=== PATIENT | female | born 1960 | race Caucasian/White ===

== ENCOUNTER 2019-08-09 11:08 | Emergency (ER) | payer OTHER ==
[~2019-08-09] VITALS: Ht 157.5 cm; Wt 90.3 kg
[2019-08-09 11:34] LABS: BASOPHILS % (AUTO) 1.2 % (0.0-2.0); EOSINOPHILS % (AUTO) 14.2 % (0.0-3.0); HEMATOCRIT 39.3 % (37.0-47.0); HEMOGLOBIN 13.5 G/DL (12.0-16.0); LYMPHOCYTES % (AUTO) 25.1 % (20.0-45.0); MEAN CORPUSCULAR VOLUME 87 FL (80-99); NEUTROPHILS % (AUTO) 52.5 % (45.0-75.0); PLATELET COUNT 200 K/UL (150-450); RED BLOOD COUNT 4.53 M/UL (4.20-5.40); RED CELL DISTRIBUTION WIDTH 11.8 % (11.6-14.8); WHITE BLOOD COUNT 10.2 K/UL (4.8-10.8)
--- NOTE | 2019-08-09 11:35 | NUR ---
ED Nurse Note: PT. BROUGHT IN BY [facility] FROM HOME. PER PT. SHE HAS BEEN HAVING CP SINCE THIS MORNING NON-RADIATING.PT. STATED SHE WAS RECENTLY D/C FROM THE HOSPITAL FOR ASTHMA AND THAT ECHO EXAM WAS NORMAL. PT. ALSO STATED SHE HAS DIZZINESS X 1 HR FROM ER ARRIVBAL. NONMEDS GIVEN BY [employer] INSERTER
--- NOTE | 2019-08-09 11:37 | NUR ---
ED Nurse Note: flu swab obtained and pt to ct scan.
--- NOTE | 2019-08-09 11:41 | Emergency Room Report ---
History of Present Illness General Chief Complaint: General Complaint Source: Patient, EMS Present Illness HPI Patient is a 59-year-old female past medical history of obesity and asthma who presents to the ER complaining of dizziness, generalized weakness, chest pain and shortness of breath. Patient states that this is been an ongoing issue. She states that she was admitted to an outside facility a week ago and was told that this was due to her asthma. She states that she had an echo which was normal. Patient denies any fever or chills. She states that she used her inhaler but still has symptoms. She says that the chest pain is substernal and nonradiating. She states that when she walks into her house she gets exposed to dust and she becomes more short of breath. She denies any lower extremity pain or edema. Allergies: Coded Allergies: No Known Allergies (Unverified , 08/09/19) Patient History Social History: Denies: smoking, alcohol use, drug use Reviewed Nursing Documentation: PMH: Agreed; PSxH: Agreed Nursing Documentation-PMH Past Medical History: No History, Except For Hx Cardiac Problems: Yes - depression Hx Hypertension: Yes Hx Diabetes: Yes Review of Systems All Other Systems: negative except mentioned in HPI Physical Exam Vital Signs Date Time Temp Pulse Resp B/P (MAP) Pulse Ox O2 Delivery O2 Flow Rate FiO2 08/09/19 11:02 98.2 95 24 163/118 (133) 99 Room Air Sp02 EP Interpretation: reviewed, normal General Appearance: no apparent distress, alert, GCS 15, non-toxic Head: normocephalic, atraumatic Eyes: bilateral eye normal inspection, bilateral eye PERRL ENT: hearing grossly normal, normal pharynx, no angioedema, normal voice Neck: full range of motion, supple/symm/no masses Respiratory: chest non-tender, lungs clear, speaking full sentences, wheezing Cardiovascular #1: regular rate, rhythm, no edema Cardiovascular #2: 2+ carotid (R), 2+ carotid (L), 2+ radial (R), 2+ radial (L) , 2+ dorsalis pedis (R), 2+ dorsalis pedis (L) Gastrointestinal: normal bowel sounds, non tender, soft, non-distended, no guarding, no rebound, other - Obese abdomen Rectal: deferred Genitourinary: normal inspection, no CVA tenderness Musculoskeletal: back normal, normal range of motion, calf tenderness, gait/ station normal, non-tender Neurologic: alert, motor strength/tone normal, oriented x3, sensory intact, responsive, speech normal Psychiatric: judgement/insight normal, memory normal, mood/affect normal, no suicidal/homicidal ideation Skin: no rash Lymphatic: no adenopathy Medical Decision Making Diagnostic Impression: Primary Impression: Chest pain Additional Impressions: Cardiomegaly Dyspnea Acute anxiety ER Course Patient given aspirin for her chest pain. Patient CT brain demonstrates no acute intracranial abnormalities. Patient's d-dimer is elevated and she had recent admission with complaints of chest pain and shortness of breath. CTA has been ordered to rule out pulmonary embolism. CTA demonstrates no evidence for PE. Patient has significant cardiomegaly. Patient will be transferred for further treatment and evaluation to [facility] EKG Diagnostic Results EKG Time: 11:19 EP Interpretation: MD Chaya Rate: normal Rhythm: NSR ST Segments: no acute changes ASA given to the pt in ED: Yes Rhythm Strip Diag. Results Rhythm Strip Time: 11:41 EP Interpretation: yes Rate: 76 Rhythm: NSR, no PVC's, no ectopy Last Vital Signs Date Time Temp Pulse Resp B/P (MAP) Pulse Ox O2 Delivery O2 Flow Rate FiO2 08/09/19 11:02 98.2 95 24 163/118 (133) 99 Room Air Disposition: XFER [facility] Physician Consult: Dr. Platt [facility] in guarded improved condition Jessica Larkin M.D. Aug 09, 2019 11:41
[2019-08-09] MEDS ORDERED: Aspirin Baby 81mg ORAL ONE ×2 (11:45→12:15)
[2019-08-09 11:47] LABS: ANION GAP 16 mmol/L (5-15); BLOOD UREA NITROGEN 8 mg/dL (7-18); CALCIUM 8.9 MG/DL (8.5-10.1); CARBON DIOXIDE 23 MMOL/L (21-32); CHLORIDE 105 MMOL/L (98-107); CREATININE 0.6 MG/DL (0.55-1.30); POTASSIUM 3.6 MMOL/L (3.5-5.1); SODIUM 144 MMOL/L (136-145)
[2019-08-09 12:01] LABS: ALANINE AMINOTRANSFERASE 27 U/L (12-78); ALBUMIN 3.3 G/DL (3.4-5.0); ALBUMIN/GLOBULIN RATIO 0.7 (1.0-2.7); ALKALINE PHOSPHATASE 118 U/L (46-116); ASPARTATE AMINO TRANSFERASE 14 U/L (15-37); BILIRUBIN,TOTAL 0.3 MG/DL (0.2-1.0)
[2019-08-09 12:05] LABS: INR 0.9 (0.9-1.1)
--- NOTE | 2019-08-09 12:07 | Diagnostic Imaging Report ---
Indication: Headache Technique: Contiguous 5 mm thick transaxial imaging of the head obtained in a Siemens Sensation [address] scanner. Soft tissue and bone windows generated. Automatic Exposure Control was utilized. Total Dose length Product (DLP): 1072.2mGycm CT Dose Index Volume (CTDIvol): 53.4 mGy Comparison: none Findings: The size and configuration of the cortical sulci, basal cisterns, and ventricles are within normal limits for age. There is no mass effect, midline shift, or edema identified. There is no evidence of acute hemorrhage or abnormal intra-axial or extra-axial fluid collections. The bones and soft tissues are unremarkable. Impression: No mass effect, edema or acute bleed. The CT scanner at [facility] is accredited by the [employer] and the scans are performed using dose optimization techniques as appropriate to a performed exam including Automatic Exposure control.
--- NOTE | 2019-08-09 12:07 | NUR ---
ED Nurse Note: pt voiding on bedpan, urine sent to lab. pt denies new c/o. no increased cp or n/v.
--- NOTE | 2019-08-09 12:29 | NUR ---
ED Nurse Note: resp therapist administering hhn
[2019-08-09 12:30] VITALS: BP_SYST 148; BP_SYST 158; BP_DIAS 109; BP_DIAS 88
[2019-08-09] MEDS ORDERED: Omnipaque 350 100ml vial INJ PRN (12:30)
--- NOTE | 2019-08-09 12:41 | NUR ---
ED Nurse Note: pt to ct after hhn completed.
[2019-08-09] MEDS ORDERED: Albuterol/Ipratropium 3ml neb HHN SCH (13:00)
--- NOTE | 2019-08-09 13:40 | NUR ---
ED Nurse Note: pt. transported via [facility] ambulance to [facility] with vss and with all her belongings
--- NOTE | 2019-08-09 13:47 | Diagnostic Imaging Report ---
Indication: Chest pain Technique: Continuous helical transaxial imaging of the chest was obtained from the thoracic inlet to the upper abdomen during rapid intravenous contrast administration. Arterial phase of enhancement obtained. Coronal 2-D reformats were also obtained and maximum intensity projection images in multiple planes. Study obtained in a Siemens sensation [address] Automatic Exposure Control was utilized. Total Dose length Product (DLP): 384.[address] Dose Index Volume (CTDIvol): 73.1 mGy Comparison: None Findings: The pulmonary artery is well opacified and shows no filling defects. There is no adenopathy, pleural or pericardial effusions are identified. The heart is enlarged. There is no aortic dissection or aneurysm identified within the chest. Mild increased groundglass opacities demonstrated throughout the lung white nonspecific. There is a hiatal hernia. The liver is hypodense consistent with fatty infiltration. IMPRESSION: No evidence of pulmonary embolus, aortic dissection or aneurysm. Cardiomegaly Fatty liver The CT scanner at [facility] is accredited by the [employer] and the scans are performed using dose optimization techniques as appropriate to a performed exam including Automatic Exposure control.
[2019-08-09 14:20] VITALS: BP 158/88
[2019-08-09] MEDS ORDERED: CARDIZEM30 M1 PO (14:29)
[2019-08-09] MEDS ORDERED: JANUVIA25 MG ORAL (14:31)
[2019-08-09] MEDS ORDERED: LISINOPRIL5 MG ORAL (14:31)
[2019-08-09] MEDS ORDERED: METFORMIN HCL500 M1 ORAL (14:31)
[2019-08-09] MEDS ORDERED: LANTUS SOL100 UNIT/1 SUBQ (14:31)
--- NOTE | 2019-08-09 14:32 | NUR ---
ED Nurse Note: LUCAS Moore-received report from [facility]
== END 2019-08-09 13:40 | disposition short-term general hospital (02) ==
LOC: EDBD 11:08 → EMR 11:35
DX: R07.9 Chest pain, unspecified (principal); I51.7 Cardiomegaly; R06.00 Dyspnea, unspecified; F41.9 Anxiety disorder, unspecified; I10 Essential (primary) hypertension; E11.9 Type 2 diabetes mellitus without complications; F32.9 Major depressive disorder, single episode, unspecified
CPT/HCPCS: 36415; 70450; 71045; 71275; 80053; 83735; 83880; 84484; 85025; 85379; 85610; 85730; 86710; 93005; Q9967; Z7502; 99284; J7620

== ENCOUNTER 2020-03-28 20:10 | Emergency (ER) | payer OTHER ==
[~2020-03-28] VITALS: Ht 157.5 cm; Wt 90.7 kg
[~2020-03-28 20:10] MED LIST: CARDIZEM30 M1 PO; JANUVIA25 MG ORAL; LANTUS SOL100 UNIT/1 SUBQ; LISINOPRIL5 MG ORAL; METFORMIN HCL500 M1 ORAL
[2020-03-28 20:35] VITALS: BP 189/94
[2020-03-28 21:35] LABS: BASOPHILS % (AUTO) 1.4 % (0.0-2.0); EOSINOPHILS % (AUTO) 11.7 % (0.0-3.0); HEMATOCRIT 41.3 % (37.0-47.0); HEMOGLOBIN 13.9 G/DL (12.0-16.0); MEAN CORPUSCULAR VOLUME 87 FL (80-99); MONOCYTES % (AUTO) 7.4 % (1.0-10.0); NEUTROPHILS % (AUTO) 48.4 % (45.0-75.0); PLATELET COUNT 208 K/UL (150-450); RED BLOOD COUNT 4.74 M/UL (4.20-5.40); RED CELL DISTRIBUTION WIDTH 12.8 % (11.6-14.8); WHITE BLOOD COUNT 8.1 K/UL (4.8-10.8)
[2020-03-28 21:37] LABS: ANION GAP 8 mmol/L (5-15); BLOOD UREA NITROGEN 12 mg/dL (7-18); CALCIUM 8.5 MG/DL (8.5-10.1); CARBON DIOXIDE 26 MMOL/L (21-32); CHLORIDE 104 MMOL/L (98-107); CREATININE 0.8 MG/DL (0.55-1.30); POTASSIUM 3.8 MMOL/L (3.5-5.1); SODIUM 138 MMOL/L (136-145)
[2020-03-28 21:42] LABS: ALANINE AMINOTRANSFERASE 17 U/L (12-78); ALBUMIN 3.3 G/DL (3.4-5.0); ALKALINE PHOSPHATASE 106 U/L (46-116); ASPARTATE AMINO TRANSFERASE 19 U/L (15-37); BILIRUBIN,TOTAL 0.2 MG/DL (0.2-1.0)
[2020-03-28] MEDS ORDERED: HYDROcodone/Acetamin 5/325 tab ORAL ONE (22:00)
[2020-03-28] MEDS ORDERED: Cyclobenzaprine 10mg Tab ORAL ONE (22:00)
[2020-03-28] MEDS ORDERED: Ketorolac 60mg Inj IM ONE (22:00)
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
[2020-03-28 22:45] VITALS: BP 141/86
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
[2020-03-28] MEDS ORDERED: CYCLOBENZAPRINE10 MG ORAL (23:28)
[2020-03-28] MEDS ORDERED: ACETAMINOPHEN-1 EAC1 ORAL (23:28)
[2020-03-28 23:48] VITALS: BP 142/85
== END 2020-03-28 23:48 | disposition home or self-care (01) ==
LOC: EMR 21:23
DX: S13.4XXA Sprain of ligaments of cervical spine, initial encounter (principal); S39.012A Strain of muscle, fascia and tendon of lower back, initial encounter; V43.52XA Car driver injured in collision with other type car in traffic accident, initial encounter; Y92.410 Unspecified street and highway as the place of occurrence of the external cause; E11.9 Type 2 diabetes mellitus without complications; I10 Essential (primary) hypertension; F32.9 Major depressive disorder, single episode, unspecified; E34.8 Other specified endocrine disorders
CPT/HCPCS: 36415; 70450; 72125; 72128; 72131; 80053; 85025; 96372; Z7502; 99284